=== PATIENT | male | born 1990 | race Caucasian/White ===

== ENCOUNTER 2016-09-26 16:19 | Emergency (ER) | payer OTHER ==
[~2016-09-26] VITALS: Ht 172.7 cm; Wt 115.7 kg
[~2016-09-26 16:19] MED LIST: IBUPROFEN800 MG PO; ULTRAM(MONOGRAP50 MG PO
[2016-09-26 16:28] VITALS: BP 162/97
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
[2016-09-26] MEDS ORDERED: CYCLOBENZAPRINE10 M1 PO (17:28)
[2016-09-26] MEDS ORDERED: IBUPROFEN800 M1 PO (17:28)
== END 2016-09-26 17:41 ==
LOC: ERH 16:19
DX: S46.912A Strain of unspecified muscle, fascia and tendon at shoulder and upper arm level, left arm, initial encounter (principal); V49.40XA Driver injured in collision with unspecified motor vehicles in traffic accident, initial encounter; Y92.410 Unspecified street and highway as the place of occurrence of the external cause